=== PATIENT | female | born 1980 | race Caucasian/White ===

== ENCOUNTER 2018-02-07 14:33 | Emergency (ER) | payer SELFPAY ==
[2018-02-07] MEDS ORDERED: Sodium Chloride 0.9% 10 ML Syringe FLUSH PRN (15:03)
[2018-02-07] MEDS ORDERED: Sodium Chloride 0.9% 1,000 ML IV STA (15:03)
[2018-02-07] MEDS ORDERED: HYDROmorphone 0.5 MG/0.5 ML SYRINGE IVPUSH ONE (15:07)
[2018-02-07] MEDS ORDERED: Diatrizoate Meglumine/Diatrizoate Sodium 37% 120 ML Bottle PO ONE (16:09)
[2018-02-07] MEDS ORDERED: Iopamidol 612 MG/ML 100 ML Bottle IVPUSH ONE (16:09)
--- NOTE | 2018-02-07 17:08 | EDM.PDOC ---
ED HPI GENERAL MEDICAL PROBLEM - General Chief Complaint: Abdominal Pain Stated Complaint: STOMACH PROBLEM Time Seen by Provider: 02/07/18 14:47 Source of Information: Reports: Patient History Limitations: Reports: No Limitations - History of Present Illness INITIAL COMMENTS - FREE TEXT/NARRATIVE: The patient presents with abdominal pain and diarrhea. This has been going on since November and it seems like it is getting worse. She does not recall anything happening in November such as traveling, camping or eating any bad food. She has lost about 15 pounds. She cannot eat much because she will have diarrhea right away. She has pain most of the time in her abdomen. The pain will get worse before having diarrhea and gets better with diarrhea. This is affecting her life. She is running to the toilet multiple times at work and at home. She watched a movie with her last night and she had a bowel movement 3 times. She denies fever, chills, cough, chest pain, nausea or vomiting. She did notice some blood in her stools a few times. She has no family members with bowel problems. She has also been burping a lot when she does eat. Onset: Gradual Duration: Week(s): (Since November) Location: Reports: Abdomen Quality: Reports: Other (Cramping) Severity: Moderate Improves with: Reports: None Worsens with: Reports: None Associated Symptoms: Denies: Confusion, Chest Pain, Fever/Chills, Headaches, Nausea/Vomiting, Shortness of Breath Abdominal Pain Score (Numeric/FACES): 8 - Related Data Allergies Allergy/AdvReac Type Severity Reaction Status Date / Time amoxicillin Allergy Diarrhea Verified 02/07/18 14:56 cephalexin Allergy Hives Verified 02/07/18 14:56 Home Meds: Home Meds Ciprofloxacin HCl [Cipro] 500 mg PO BID #14 tablet 02/07/18 [Rx] metroNIDAZOLE [Flagyl] 500 mg PO Q8H #21 tab 02/07/18 [Rx] traMADol HCl [Ultram] 50 - 100 mg PO Q6HR PRN #20 tablet 02/07/18 [Rx] Past Medical History Gastrointestinal History: Reports: Other (See Below) Other Gastrointestinal History: Ulcers Social & Family History - Tobacco Use Smoking Status *Q: Never Smoker Second Hand Smoke Exposure: No - Recreational Drug Use Recreational Drug Use: No ED ROS GENERAL - Review of Systems Review Of Systems: See Below Constitutional: Reports: No Symptoms HEENT: Reports: No Symptoms Respiratory: Reports: No Symptoms Cardiovascular: Reports: No Symptoms Endocrine: Reports: No Symptoms GI/Abdominal: Reports: Abdominal Pain, Diarrhea. Denies: Nausea, Vomiting : Reports: No Symptoms Musculoskeletal: Reports: No Symptoms ED EXAM, GI/ABD - Physical Exam Exam: See Below Exam Limited By: No Limitations General Appearance: Alert, No Apparent Distress Ears: Normal External Exam Nose: Normal Inspection Head: Atraumatic, Normocephalic Neck: Normal Inspection Respiratory/Chest: No Respiratory Distress, Lungs Clear, Normal Breath Sounds Cardiovascular: Regular Rate, Rhythm, No Edema, No Murmur GI/Abdominal Exam: Soft, No Organomegaly, No Mass, Tender (Mild to moderate tenderness to the upper abdomen) Course - Vital Signs Last Recorded V/S: Last Vital Signs Temp 97.8 F 02/07/18 14:53 Pulse 95 02/07/18 14:53 Resp 16 02/07/18 14:53 BP 135/89 02/07/18 14:53 Pulse Ox 99 02/07/18 14:53 - Orders/Labs/Meds Orders: Active Orders 24 hr Category Date Time Status Peripheral IV Care [RC] . DIRECTED Care 02/07/18 15:03 Active Abdomen Pelvis w Cont [CT] Stat Exams 02/07/18 15:03 Taken CULTURE STOOL + SHIGATOX [RM] Stat Lab 02/07/18 16:20 Ordered OVA & PARASITES BY IMMUNOASSAY [MREF] Stat Lab 02/07/18 16:20 Received Sodium Chloride 0.9% [Saline Flush] Med 02/07/18 15:03 Active 10 ml FLUSH ASDIRECTED PRN Peripheral IV Insertion Adult [OM.PC] Stat Oth 02/07/18 15:03 Ordered Medication Orders Sodium Chloride (Saline Flush) 10 ml FLUSH ASDIRECTED PRN PRN Reason: Keep Vein Open Last Admin: 02/07/18 15:22 Dose: 10 ml Labs: Laboratory Tests 02/07/18 02/07/18 02/07/18 Range/Units 14:47 15:10 15:10 WBC 12.87 H (3.98-10.04) K/mm3 RBC 4.78 (3.98-5.22) M/mm3 Hgb 14.6 (11.2-15.7) gm/L Hct 43.7 (34.1-44.9) % MCV 91.4 (79.4-94.8) fl MCH 30.5 (25.6-32.2) pg MCHC 33.4 (32.2-35.5) g/dl RDW Std Deviation 42.5 (36.4-46.3) fL Plt Count 391 H (182-369) K/mm3 MPV 9.8 (9.4-12.3) fl Neut % (Auto) 59.8 (34.0-71.1) % Lymph % (Auto) 22.8 (19.3-51.7) % [place] % (Auto) 12.4 (4.7-12.5) % Eos % (Auto) 4.1 (0.7-5.8) Baso % (Auto) 0.7 (0.1-1.2) % Neut # (Auto) 7.69 H (1.56-6.13) K/mm3 Lymph # (Auto) 2.93 (1.18-3.74) K/mm3 [place] # (Auto) 1.60 H (0.24-0.36) K/mm3 Eos # (Auto) 0.53 H (0.04-0.36) K/mm3 Baso # (Auto) 0.09 H (0.01-0.08) K/mm3 Manual Slide Review Abnormal smear Sodium 137 (136-145) mEq/L Potassium 3.9 (3.5-5.1) mEq/L Chloride 100 (98-107) mEq/L Carbon Dioxide 29 (21-32) mEq/L Anion Gap 11.9 (5-15) BUN 4 L (7-18) mg/dL Creatinine 0.8 (0.55-1.02) mg/dL Est Cr Clr Drug Dosing 84.76 mL/min Estimated GFR (MDRD) > 60 (>60) mL/min BUN/Creatinine Ratio 5.0 L (14-18) Glucose 98 (74-106) mg/dL Calcium 9.6 (8.5-10.1) mg/dL Total Bilirubin 0.2 (0.2-1.0) mg/dL AST 11 L (15-37) U/L ALT 10 L (14-59) U/L Alkaline Phosphatase 78 (46-116) U/L Total Protein 7.2 (6.4-8.2) g/dl Albumin 3.0 L (3.4-5.0) g/dl Globulin 4.2 gm/dL Albumin/Globulin Ratio 0.7 L (1-2) Lipase 133 (73-393) U/L HCG, Qual (NEGATIVE) Urine Color Yellow (Yellow) Urine Appearance Clear (Clear) Urine pH 7.0 (5.0-8.0) Ur Specific [place] 1.010 (1.005-1.030) Urine Protein Negative (Negative) Urine Glucose (UA) Negative (Negative) Urine Ketones 1+ H (Negative) Urine Occult Blood Trace-intact H (Negative) Urine Nitrite Negative (Negative) Urine Bilirubin Negative (Negative) Urine Urobilinogen 0.2 (0.2-1.0) Ur Leukocyte Esterase Negative (Negative) Urine RBC 0-5 (0-5) /hpf Urine WBC Not seen (0-5) /hpf Ur Epithelial Cells 0-5 (0-5) /hpf Urine Bacteria Not seen (FEW) /hpf Urine Mucus Not seen (FEW) /hpf C.difficile [id number] C. difficile Tox (PCR) 02/07/18 02/07/18 Range/Units 15:10 16:20 WBC (3.98-10.04) K/mm3 RBC (3.98-5.22) M/mm3 Hgb (11.2-15.7) gm/L Hct (34.1-44.9) % MCV (79.4-94.8) fl MCH (25.6-32.2) pg MCHC (32.2-35.5) g/dl RDW Std Deviation (36.4-46.3) fL Plt Count (182-369) K/mm3 MPV (9.4-12.3) fl Neut % (Auto) (34.0-71.1) % Lymph % (Auto) (19.3-51.7) % [place] % (Auto) (4.7-12.5) % Eos % (Auto) (0.7-5.8) Baso % (Auto) (0.1-1.2) % Neut # (Auto) (1.56-6.13) K/mm3 Lymph # (Auto) (1.18-3.74) K/mm3 [place] # (Auto) (0.24-0.36) K/mm3 Eos # (Auto) (0.04-0.36) K/mm3 Baso # (Auto) (0.01-0.08) K/mm3 Manual Slide Review Sodium (136-145) mEq/L Potassium (3.5-5.1) mEq/L Chloride (98-107) mEq/L Carbon Dioxide (21-32) mEq/L Anion Gap (5-15) BUN (7-18) mg/dL Creatinine (0.55-1.02) mg/dL Est Cr Clr Drug Dosing mL/min Estimated GFR (MDRD) (>60) mL/min BUN/Creatinine Ratio (14-18) Glucose (74-106) mg/dL Calcium (8.5-10.1) mg/dL Total Bilirubin (0.2-1.0) mg/dL AST (15-37) U/L ALT (14-59) U/L Alkaline Phosphatase (46-116) U/L Total Protein (6.4-8.2) g/dl Albumin (3.4-5.0) g/dl Globulin gm/dL Albumin/Globulin Ratio (1-2) Lipase (73-393) U/L HCG, Qual Negative (NEGATIVE) Urine Color (Yellow) Urine Appearance (Clear) Urine pH (5.0-8.0) Ur Specific [place] (1.005-1.030) Urine Protein (Negative) Urine Glucose (UA) (Negative) Urine Ketones (Negative) Urine Occult Blood (Negative) Urine Nitrite (Negative) Urine Bilirubin (Negative) Urine Urobilinogen (0.2-1.0) Ur Leukocyte Esterase (Negative) Urine RBC (0-5) /hpf Urine WBC (0-5) /hpf Ur Epithelial Cells (0-5) /hpf Urine Bacteria (FEW) /hpf Urine Mucus (FEW) /hpf C.difficile [id number] Presumptive negative C. difficile Tox (PCR) Negative Meds: Medications Generic Name Dose Route Start Last Admin Trade Name Freq PRN Reason Stop Dose Admin Sodium Chloride 10 ml 02/07/18 15:03 02/07/18 15:22 Saline Flush FLUSH 10 ml ASDIRECTED PRN Administration Keep Vein Open Discontinued Medications Generic Name Dose Route Start Last Admin Trade Name Freq PRN Reason Stop Dose Admin Diatrizoate Meglum/Diatrizoate Sod 90 ml 02/07/18 16:09 02/07/18 16:50 Gastrografin 37% PO 02/07/18 16:10 90 ml ONETIME ONE Administration Hydromorphone HCl 0.5 mg 02/07/18 15:07 02/07/18 15:21 Dilaudid IVPUSH 02/07/18 15:08 0.5 mg ONETIME ONE Administration Sodium Chloride 1,000 mls @ 1,000 mls/hr 02/07/18 15:03 02/07/18 15:21 Normal Saline IV 02/07/18 16:02 1,000 mls/hr .BOLUS STA Administration Iopamidol 100 ml 02/07/18 16:09 02/07/18 16:50 Isovue-300 (61%) IVPUSH 02/07/18 16:10 100 ml ONETIME ONE Administration - Re-Assessments/Exams Free Text/Narrative Re-Assessment/Exam: 02/07/18 18:40 I ordered an IV NS 1L bolus, dilaudid 0.5mg IV, labs, UA, stool studies and a CT of her abdomen and pelvis. 02/07/18 18:40 Her WBC is elevated at 12.87. Her CMP looks good. Her UA shows no UTI. Her HCG is negative. Her c-dif is negative. Her CT shows colitis most prominently involving the descending and sigmoid colon. She feels a little better. I called [facility] and talked with the GI doctor resolution expert Dr Talbot and he recommended cipro and flagyl and follow up in their clinic. I will give her a dose of flagyl and levaquin here and give her a prescription for more. I will have her call [facility] and try to get in sooner then March 04. Departure - Departure Time of Disposition: 18:45 Disposition: Home, Self-Care 01 Condition: Good Clinical Impression: Colitis Diarrhea Qualifiers: Diarrhea type: unspecified type Qualified Code(s): R19.7 - Diarrhea, unspecified - Discharge Information *PRESCRIPTION DRUG MONITORING PROGRAM REVIEWED*: No *COPY OF PRESCRIPTION DRUG MONITORING REPORT IN PATIENT NORRIS: No Prescriptions: traMADol HCl [Ultram] 50 - 100 mg PO Q6HR PRN #20 tablet PRN Reason: Pain Ciprofloxacin HCl [Cipro] 500 mg PO BID #14 tablet metroNIDAZOLE [Flagyl] 500 mg PO Q8H #21 tab Referrals: PCP,None [Primary Care Provider] - Andi Talbot MD [Ordering Only Provider] - 1 Week Forms: ED Department Discharge Additional Instructions: Take cipro 2 times per day for 7 days. Take flagyl 3 times per day for 7 days. Take the ultram as needed for pain. Drink plenty of fluids and try to eat as much as you can. Continue to take the multivitamin and probiotic. Call GI clinic and tell them I talked to Dr Talbot and see if they can get you in sooner. I have sent your CT to [facility] so they can look at it. Please return if you are worse. - My Orders Last 24 Hours: My Active Orders 02/07/18 15:03 Peripheral IV Care [RC] . DIRECTED Abdomen Pelvis w Cont [CT] Stat Sodium Chloride 0.9% [Saline Flush] 10 ml FLUSH ASDIRECTED PRN Peripheral IV Insertion Adult [OM.PC] Stat 02/07/18 16:20 CULTURE STOOL + SHIGATOX [RM] Stat OVA & PARASITES BY IMMUNOASSAY [MREF] Stat - Assessment/Plan Last 24 Hours: My Active Orders 02/07/18 15:03 Peripheral IV Care [RC] . DIRECTED Abdomen Pelvis w Cont [CT] Stat Sodium Chloride 0.9% [Saline Flush] 10 ml FLUSH ASDIRECTED PRN Peripheral IV Insertion Adult [OM.PC] Stat 02/07/18 16:20 CULTURE STOOL + SHIGATOX [RM] Stat OVA & PARASITES BY IMMUNOASSAY [MREF] Stat
[2018-02-07] MEDS ORDERED: Levofloxacin 500 MG Tab PO ONE (18:43)
[2018-02-07] MEDS ORDERED: metroNIDAZOLE 500 MG Tab PO ONE (18:45)
--- NOTE | 2018-02-08 07:30 | CT ---
CT abdomen and pelvis Technique: Multiple axial sections were obtained from above the dome of the diaphragm inferiorly through the pubic symphysis. Delayed images were obtained to the bladder. Comparison: No previous studies available. Findings: Very slight bowel wall thickening seen around the large portion of the colon. Very slight surrounding inflammatory change seen around portions of the colon. Findings are felt compatible with a mild nonspecific colitis. Visualized lung bases are clear. Liver shows no focal parenchymal abnormality. Spleen appears within normal limits. Adrenal glands show no nodule. Pancreas is within normal limits. Kidneys show symmetric contrast enhancement without hydronephrosis or mass. Delayed images show contrast within the distal ureters and within the bladder. Aorta shows no aneurysmal dilatation. No retroperitoneal adenopathy is seen. No mesenteric abnormalities are seen. Appendix is seen which is normal in size. No pelvic mass or adenopathy is seen. Bone window settings were reviewed which appear within normal limits for the patient's age. Impression: 1. Findings compatible with a mild nonspecific colitis. 2. No additional abnormality is seen on CT study of the abdomen and pelvis. Diagnostic code #3 I agree with preliminary report from [facility], finalized at 02/07/18, 6:17 PM Central Time
== END 2018-02-07 18:58 | disposition home or self-care (01) ==
LOC: JD.ED 14:33
DX: K52.9 Noninfective gastroenteritis and colitis, unspecified (principal); Z88.1 Allergy status to other antibiotic agents
CPT/HCPCS: 36415; 74177; 80053; 81001; 83690; 84703; 85025; 87046; 87328; 87329; 87493; 96361; 96374; 99284; A9270; J1170; J7040; J7050; Q9963; Q9967

== ENCOUNTER 2018-03-06 11:16 | Emergency (ER) | payer BC ==
[2018-03-06] MEDS ORDERED: Ondansetron 4 MG/2 ML SDV IVPUSH ONE (11:48)
[2018-03-06] MEDS ORDERED: Sodium Chloride 0.9% 10 ML Syringe FLUSH PRN (11:48)
[2018-03-06] MEDS ORDERED: Sodium Chloride 0.9% 2,000 ML IV STA (11:48)
[2018-03-06] MEDS ORDERED: HYDROmorphone 1 MG/ML Syringe IVPUSH ONE (11:50)
--- NOTE | 2018-03-06 14:37 | EDM.PDOC ---
ED HPI GENERAL MEDICAL PROBLEM - General Chief Complaint: Gastrointestinal Problem Stated Complaint: UNABLE TO EAT AND DIARRHEA X 3 MONTHS Time Seen by Provider: 03/06/18 11:28 Source of Information: Reports: Patient, Family History Limitations: Reports: No Limitations - History of Present Illness INITIAL COMMENTS - FREE TEXT/NARRATIVE: The patient presents with 3 months of nausea, vomiting, stomach cramps and diarrhea. She has been seen at [facility] and referred to GI. She saw them and they will be doing a colonoscopy on the 25 of March. She was seen in our ER on February 07. Labs and a CT were done. The CT showed nonspecific colitis. She was put on flagyl and cipro at that time. That did not help. She continues to have multiple episodes of diarrhea. She has about 8 to 10 episodes daily. She is worried she may be dehydrated. She has chills. She has no chest pain, shortness of breath, numbness or weakness. Onset: Gradual Duration: Week(s): (3 months) Location: Reports: Abdomen Quality: Reports: Other (cramping) Severity: Moderate Improves with: Reports: None Worsens with: Reports: None Associated Symptoms: Reports: Fever/Chills, Nausea/Vomiting. Denies: Chest Pain , Cough, Headaches, Shortness of Breath Lower Abdomen Pain Score (Numeric/FACES): 4 - Related Data Allergies Allergy/AdvReac Type Severity Reaction Status Date / Time amoxicillin Allergy Diarrhea Verified 02/07/18 14:56 cephalexin Allergy Hives Verified 02/07/18 14:56 Home Meds: Home Meds Hydrocodone/Acetaminophen [Hydrocodon-Acetaminophen 5-325] 1 - 2 each PO Q6HR PRN #20 tablet 03/06/18 [Rx] Ondansetron [Zofran ODT] 4 mg PO Q6H PRN #20 tab.dis 03/06/18 [Rx] predniSONE [Prednisone] 40 mg PO DAILY #14 tablet 03/06/18 [Rx] Past Medical History Gastrointestinal History: Reports: Other (See Below) Other Gastrointestinal History: Ulcers 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 Denies: Fever HEENT: Reports: No Symptoms Respiratory: Reports: No Symptoms Cardiovascular: Reports: No Symptoms Endocrine: Reports: No Symptoms GI/Abdominal: Reports: Abdominal Pain, Diarrhea, Nausea, Vomiting : Reports: No Symptoms Musculoskeletal: Reports: No Symptoms Skin: Reports: No Symptoms Neurological: Reports: No Symptoms ED EXAM, GI/ABD - Physical Exam Exam: See Below Exam Limited By: No Limitations General Appearance: Alert, No Apparent Distress Ears: Normal External Exam Nose: Normal Inspection Head: Atraumatic, Normocephalic Neck: Normal Inspection Respiratory/Chest: No Respiratory Distress, Lungs Clear, Normal Breath Sounds Cardiovascular: Regular Rate, Rhythm, No Edema, No Murmur GI/Abdominal Exam: Soft, No Organomegaly, No Mass, Tender (Mild generalized ) Back Exam: Normal Inspection Extremities: Normal Inspection Course - Vital Signs Last Recorded V/S: Last Vital Signs Temp 98.3 F 03/06/18 13:21 Pulse 88 03/06/18 13:21 Resp 16 03/06/18 13:21 BP 113/67 03/06/18 13:21 Pulse Ox 100 03/06/18 13:21 - Orders/Labs/Meds Orders: Active Orders 24 hr Category Date Time Status Peripheral IV Care [RC] . DIRECTED Care 03/06/18 11:49 Active Sodium Chloride 0.9% [Saline Flush] Med 03/06/18 11:48 Active 10 ml FLUSH ASDIRECTED PRN ED Antiemetic Medication Reflex [OM.PC] Stat Oth 03/06/18 11:50 Ordered Peripheral IV Insertion Adult [OM.PC] Stat Oth 03/06/18 11:48 Ordered Medication Orders Sodium Chloride (Saline Flush) 10 ml FLUSH ASDIRECTED PRN PRN Reason: Keep Vein Open Last Admin: 03/06/18 12:13 Dose: 10 ml Labs: Laboratory Tests 03/06/18 03/06/18 Range/Units 12:01 12:01 WBC 11.40 H (3.98-10.04) K/mm3 RBC 4.62 (3.98-5.22) M/mm3 Hgb 13.9 (11.2-15.7) gm/L Hct 41.3 (34.1-44.9) % MCV 89.4 (79.4-94.8) fl MCH 30.1 (25.6-32.2) pg MCHC 33.7 (32.2-35.5) g/dl RDW Std Deviation 41.4 (36.4-46.3) fL Plt Count 347 (182-369) K/mm3 MPV 9.6 (9.4-12.3) fl Neut % (Auto) 65.3 (34.0-71.1) % Lymph % (Auto) 15.4 L (19.3-51.7) % [place] % (Auto) 17.2 H (4.7-12.5) % Eos % (Auto) 1.3 (0.7-5.8) Baso % (Auto) 0.4 (0.1-1.2) % Neut # (Auto) 7.46 H (1.56-6.13) K/mm3 Lymph # (Auto) 1.75 (1.18-3.74) K/mm3 [place] # (Auto) 1.96 H (0.24-0.36) K/mm3 Eos # (Auto) 0.15 (0.04-0.36) K/mm3 Baso # (Auto) 0.04 (0.01-0.08) K/mm3 Manual Slide Review Abnormal smear Sodium 133 L (136-145) mEq/L Potassium 3.7 (3.5-5.1) mEq/L Chloride 100 (98-107) mEq/L Carbon Dioxide 25 (21-32) mEq/L Anion Gap 11.7 (5-15) BUN 6 L (7-18) mg/dL Creatinine 0.8 (0.55-1.02) mg/dL Est Cr Clr Drug Dosing 84.76 mL/min Estimated GFR (MDRD) > 60 (>60) mL/min BUN/Creatinine Ratio 7.5 L (14-18) Glucose 100 (74-106) mg/dL Calcium 9.5 (8.5-10.1) mg/dL Total Bilirubin 0.6 (0.2-1.0) mg/dL AST 9 L (15-37) U/L ALT 9 L (14-59) U/L Alkaline Phosphatase 67 (46-116) U/L Total Protein 7.0 (6.4-8.2) g/dl Albumin 2.8 L (3.4-5.0) g/dl Globulin 4.2 gm/dL Albumin/Globulin Ratio 0.7 L (1-2) Lipase 59 L (73-393) U/L Meds: Medications Generic Name Dose Route Start Last Admin Trade Name Samantha PRN Reason Stop Dose Admin Sodium Chloride 10 ml 03/06/18 11:48 03/06/18 12:13 Saline Flush FLUSH 10 ml ASDIRECTED PRN Administration Keep Vein Open Discontinued Medications Generic Name Dose Route Start Last Admin Trade Name Sonidoq PRN Reason Stop Dose Admin Hydromorphone HCl 1 mg 03/06/18 11:50 03/06/18 12:16 Dilaudid IVPUSH 03/06/18 11:51 1 mg ONETIME ONE Administration Sodium Chloride 2,000 mls @ 1,000 mls/hr 03/06/18 11:48 03/06/18 12:12 Normal Saline IV 03/06/18 13:47 1,000 mls/hr .BOLUS STA Administration Ondansetron HCl 4 mg 03/06/18 11:48 03/06/18 12:13 Zofran IVPUSH 03/06/18 11:49 4 mg ONETIME ONE Administration - Re-Assessments/Exams Free Text/Narrative Re-Assessment/Exam: 03/06/18 14:42 I ordered an IV NS 2L bolus, zofran 4mg IV, dilaudid 1mg IV, and labs. 03/06/18 14:43 Her WBC is slightly elevated at 11.4. Her Na was low at 133. Her AST and ALT were bout low . Her albumin was low at 2.8. Her lipase is low at 59. The patient and her are disappointed that things are taking long. They are wanting to go to [facility] or [facility]. I called [facility] and talked with the GI specialist rugby union footballer Dr Martinez. He wanted her on some prednisone and he said to have the patient call his office Thursday and they will get her in this week. Departure - Departure Time of Disposition: 14:50 Disposition: Home, Self-Care 01 Condition: Good Clinical Impression: Colitis Diarrhea Qualifiers: Diarrhea type: unspecified type Qualified Code(s): R19.7 - Diarrhea, unspecified - Discharge Information *PRESCRIPTION DRUG MONITORING PROGRAM REVIEWED*: No *COPY OF PRESCRIPTION DRUG MONITORING REPORT IN PATIENT NORRIS: No Prescriptions: Hydrocodone/Acetaminophen [Hydrocodon-Acetaminophen 5-325] 1 - 2 each PO Q6HR PRN #20 tablet PRN Reason: Pain Ondansetron [Zofran ODT] 4 mg PO Q6H PRN #20 tab.dis PRN Reason: Nausea\vomiting predniSONE [Prednisone] 40 mg PO DAILY #14 tablet Referrals: PCP,None [Primary Care Provider] - Edvin Martinez MD [Ordering Only Provider] - 2 Days Forms: ED Department Discharge Additional Instructions: Take the prednisone 40mg daily for 7 days. Take the zofran as needed for nausea and vomiting. Take the hydrocodone as needed for pain. Call Dr Martinez's office at [facility] Thursday. The number is . His nurse's name is Gilson. If no one answers, leave and message and they will get back to you. Please return if you are worse. - My Orders Last 24 Hours: My Active Orders 03/06/18 11:48 Sodium Chloride 0.9% [Saline Flush] 10 ml FLUSH ASDIRECTED PRN Peripheral IV Insertion Adult [OM.PC] Stat 03/06/18 11:49 Peripheral IV Care [RC] . DIRECTED 03/06/18 11:50 ED Antiemetic Medication Reflex [OM.PC] Stat - Assessment/Plan Last 24 Hours: My Active Orders 03/06/18 11:48 Sodium Chloride 0.9% [Saline Flush] 10 ml FLUSH ASDIRECTED PRN Peripheral IV Insertion Adult [OM.PC] Stat 03/06/18 11:49 Peripheral IV Care [RC] . DIRECTED 03/06/18 11:50 ED Antiemetic Medication Reflex [OM.PC] Stat
== END 2018-03-06 15:53 | disposition home or self-care (01) ==
LOC: JD.ED 11:16 → SUPCPDRO 11:16 → JD.ED 15:53
DX: K52.9 Noninfective gastroenteritis and colitis, unspecified (principal)
CPT/HCPCS: 36415; 80053; 83690; 85025; 96361; 96374; 96375; 99284; J1170; J2405; J7040; J7050

== ENCOUNTER 2021-12-13 09:01 | Emergency (ER) | payer SELFPAY ==
[2021-12-13] MEDS ORDERED: Lactated Ringers 1,000 ML IV ONE (10:43)
[2021-12-13] MEDS ORDERED: Acetaminophen 325 MG Tab PO ONE (13:08)
== END 2021-12-13 13:30 | disposition home or self-care (01) ==
LOC: JD.ED 09:01
DX: R55 Syncope and collapse (principal); F17.210 Nicotine dependence, cigarettes, uncomplicated; Z88.0 Allergy status to penicillin; Z88.1 Allergy status to other antibiotic agents
CPT/HCPCS: 36415; 80053; 81001; 83735; 84703; 85025; 93005; 93225; 93226; 96360; 99284; A9270; J7120; 93010; 99283

== ENCOUNTER 2024-11-18 15:00 | Emergency (ER) | payer BC ==
[2024-11-18 16:15] LABS: BASOPHILS ABSOLUTE AUTO 0.1 K/mm3 (0.0-0.2); BASOPHILS PERCENT AUTO 2.1 % (0.0-1.0); HEMATOCRIT 32.7 % (37.0-47.0); HEMOGLOBIN 11.1 gm/dl (12.0-16.0); IMMATURE GRAN ABSOLUTE AUTO 0.01 K/mm3 (0.00-0.05); IMMATURE GRAN PERCENT AUTO 0.3 % (0.0-0.4); LYMPHOCYTES ABSOLUTE AUTO 1.1 K/mm3 (1.0-4.8); LYMPHOCYTES PERCENT AUTO 31.9 % (24.0-44.0); MEAN CORPUSCULAR HEMOGLOBIN 38.3 pg (28.0-32.0); MEAN CORPUSCULAR HGB CONC 33.9 g/dl (32.0-36.0); MEAN CORPUSCULAR VOLUME 112.8 fl (83.0-99.0); MEAN PLATELET VOLUME 9.4 fl (9.4-12.3); MONOCYTES ABSOLUTE AUTO 0.4 K/mm3 (0.0-0.8); MONOCYTES PERCENT AUTO 13.1 % (0.0-8.0); NEUTROPHILS ABSOLUTE AUTO 1.7 K/mm3 (1.8-7.7); NEUTROPHILS PERCENT AUTO 52.6 % (41.0-71.0); PLATELET COUNT,PLT 216 K/mm3 (150-400); WHITE BLOOD CELL COUNT,WBC 3.29 K/mm3 (3.9-11.3)
[2024-11-18 16:42] LABS: A/G RATIO 0.9 (1-2); ALBUMIN 2.6 g/dl (3.4-5.0); ANION GAP 11.1 (5-15); BILIRUBIN TOTAL 0.8 mg/dL (0.2-1.0); BUN/CREATININE RATIO 5.7 (14-18); CALCIUM 8.8 mg/dL (8.5-10.1); CREATININE 0.7 mg/dL (0.55-1.02); EST CRCL DRUG DOSING (CG) 54.73 mL/min; MAGNESIUM 2.1 mg/dL (1.8-2.4); POTASSIUM,K 4.1 mEq/L (3.5-5.1); PROTEIN TOTAL,TP 5.4 g/dl (6.4-8.2)
[2024-11-18] MEDS: Magnesium Sulfate 2 GM/50 mL 2 GM in Premix Bag 1 BAG IV ONE (16:42)
[2024-11-18] MEDS: Ketorolac 15 MG/ML SDV IVPUSH ONE (16:43)
== END 2024-11-18 18:10 | disposition home or self-care (01) ==
LOC: JD.ED 15:00
DX: F10.10 Alcohol abuse, uncomplicated (principal); D53.9 Nutritional anemia, unspecified; R22.43 Localized swelling, mass and lump, lower limb, bilateral; Z88.1 Allergy status to other antibiotic agents; Z88.8 Allergy status to other drugs, medicaments and biological substances; Z79.899 Other long term (current) drug therapy
CPT/HCPCS: 36415; 73630; 80053; 83735; 83880; 85025; 96365; 96375; 99283; J1885; J3475

== ENCOUNTER 2024-12-13 12:24 | Inpatient (IN) | payer BC ==
[2024-12-13] MEDS ORDERED: Sodium Chloride 0.9% 10 ML Syringe FLUSH PRN (13:05)
[2024-12-13 13:24] LABS: BASOPHILS ABSOLUTE AUTO 0.1 K/mm3 (0.0-0.2); BASOPHILS PERCENT AUTO 1.2 % (0.0-1.0); EOSINOPHILS ABSOLUTE AUTO 0.0 K/mm3 (0.0-0.4); EOSINOPHILS PERCENT AUTO 0.2 % (0.0-6.0); IMMATURE GRAN ABSOLUTE AUTO 0.00 K/mm3 (0.00-0.05); IMMATURE GRAN PERCENT AUTO 0.0 % (0.0-0.4); LYMPHOCYTES ABSOLUTE AUTO 1.4 K/mm3 (1.0-4.8); LYMPHOCYTES PERCENT AUTO 34.1 % (24.0-44.0); MEAN PLATELET VOLUME 9.0 fl (9.4-12.3); MONOCYTES ABSOLUTE AUTO 0.5 K/mm3 (0.0-0.8); MONOCYTES PERCENT AUTO 12.6 % (0.0-8.0); NEUTROPHILS ABSOLUTE AUTO 2.2 K/mm3 (1.8-7.7); NEUTROPHILS PERCENT AUTO 51.9 % (41.0-71.0); NRBC ABSOLUTE 0.00 (0.00-0.02); NRBC PERCENT 0.0 % (0.0-0.2); PLATELET COUNT,PLT 263 K/mm3 (150-400); RED BLOOD CELL COUNT 3.40 M/mm3 (4.10-5.30); WHITE BLOOD CELL COUNT,WBC 4.14 K/mm3 (3.9-11.3)
[2024-12-13 13:42] LABS: INR 1.04
[2024-12-13 13:45] LABS: A/G RATIO 0.8 (1-2); ALANINE AMINOTRANSFERASE,ALT 23 U/L (14-59); ASPARTATE AMNIOTRANSFERASE,AST 49 U/L (15-37); BILIRUBIN TOTAL 0.6 mg/dL (0.2-1.0); BLOOD UREA NITROGEN,BUN 7 mg/dL (7-18); CARBON DIOXIDE,CO2 29 mEq/L (21-32); CHLORIDE,CL 100 mEq/L (98-107); CREATININE 0.7 mg/dL (0.55-1.02); ESTIMATED GFR 111 mL/min (>60); ETHANOL BLOOD MEDICAL 0.00 gm% (0.00); GLUCOSE RANDOM 77 mg/dL (70-99); POTASSIUM,K 3.4 mEq/L (3.5-5.1); PROTEIN TOTAL,TP 5.5 g/dl (6.4-8.2); SODIUM,NA 135 mEq/L (136-145)
[2024-12-13 14:08] LABS: APPEARANCE,URINE CLEAR (Clear); GLUCOSE,URINE NEGATIVE (Negative); OCCULT BLOOD,URINE NEGATIVE (Negative)
[2024-12-13 14:18] LABS: BUPRENORPHINE SCREEN,URINE NEGATIVE (CUTOFF=10); METHADONE SCREEN, URINE NEGATIVE (CUTOFF=200); METHAMPHETAMINES SCREEN, URINE NEGATIVE (CUTOFF=500); OXYCODONE SCREEN,URINE NEGATIVE (CUT0FF=100); THC SCREEN,URINE 20 NG/ML PRESUMPTIVE POSITIVE (CUTOFF=50)
[2024-12-13 15:12] LABS: AMPHETAMINES SCREEN, URINE NEGATIVE (CUTOFF=500)
[2024-12-13] MEDS ORDERED: Sennosides/Docusate Sodium 50-8.6 MG Tab PO PRN (17:11)
[2024-12-13] MEDS ORDERED: Ondansetron 4 MG Tab.DIS PO PRN (17:11)
[2024-12-13] MEDS: Potassium Chloride 20 MEQ Tab.ER PO ONE (18:36)
[2024-12-14 08:31] LABS: FOLIC ACID 11.5 ng/mL (8.6-58.9)
[2024-12-14] MEDS: Cyanocobalamin (Vitamin B12) 1,000 MCG Tab PO SCH (08:31)
[2024-12-14 09:29] LABS: A/G RATIO 0.8 (1-2); ALANINE AMINOTRANSFERASE,ALT 19.0 U/L (14-59); ASPARTATE AMNIOTRANSFERASE,AST 58.0 U/L (15-37); BILIRUBIN TOTAL 0.4 mg/dL (0.2-1.0); BLOOD UREA NITROGEN,BUN 6.0 mg/dL (7-18); CARBON DIOXIDE,CO2 26.0 mEq/L (21-32); CHLORIDE,CL 101.0 mEq/L (98-107); CREATININE 0.7 mg/dL (0.55-1.02); EST CRCL DRUG DOSING (CG) 59.97 mL/min; ESTIMATED GFR 111.0 mL/min (>60); GLUCOSE RANDOM 98.0 mg/dL (70-99); PHOSPHORUS 3.8 mg/dL (2.6-4.7); POTASSIUM,K 4.0 mEq/L (3.5-5.1); PROTEIN TOTAL,TP 5.4 g/dl (6.4-8.2); SODIUM,NA 133.0 mEq/L (136-145); VITAMIN D,25-HYDROXY 58.1 ng/ml (30.0-100.0)
[2024-12-14] MEDS: Ondansetron 4 MG/2 ML SDV IV PRN (12:07)
[2024-12-14] MEDS: LORazepam 2 MG/ML SDV IVPUSH PRN (13:22)
== END 2024-12-15 13:01 | disposition home or self-care (01) | DRG 775 ==
LOC: JD.ED 12:24 → JD.MS 16:13
PROVIDERS: ADMIT Student in an Organized Health Care Education/Training Program; ATTEND Family Medicine
PROC: HZ2ZZZZ Detoxification Services for Substance Abuse Treatment (ICD-10-PCS; principal; 2024-12-13)
DX: F10.239 Alcohol dependence with withdrawal, unspecified (principal); E43 Unspecified severe protein-calorie malnutrition; K76.0 Fatty (change of) liver, not elsewhere classified; R63.0 Anorexia; E87.1 Hypo-osmolality and hyponatremia; K70.11 Alcoholic hepatitis with ascites; E87.5 Hyperkalemia; K51.919 Ulcerative colitis, unspecified with unspecified complications; K58.9 Irritable bowel syndrome, unspecified; E83.42 Hypomagnesemia; Z88.8 Allergy status to other drugs, medicaments and biological substances; Z88.0 Allergy status to penicillin; Z79.899 Other long term (current) drug therapy; Z98.890 Other specified postprocedural states; Z68.1 Body mass index [BMI] 19.9 or less, adult
CPT/HCPCS: 36415; 51701; 76705; 76705-26; 80053; 80306; 80307; 81003; 82306; 82607; 82746; 83735; 84100; 84425; 85025; 85610; 93005; 93010; 97116-GP; 97161-GP; 97530-GP; 99285; A9270-GY; C1758; J1650; J2060; J2405; J3475; J7030